=== PATIENT | female | born 1980 | race Caucasian/White ===

== ENCOUNTER 2019-05-19 19:10 | Emergency (ER) | payer OTHER ==
[~2019-05-19] VITALS: Ht 172.7 cm; Wt 109.8 kg
[2019-05-19 19:31] VITALS: Ht 172.7 cm; Wt 109.8 kg
[2019-05-19 22:13] VITALS: BP 151/74
== END 2019-05-19 22:13 | disposition home or self-care (01) ==
LOC: ED 19:10
DX: S43.014A Anterior dislocation of right humerus, initial encounter (principal); W01.0XXA Fall on same level from slipping, tripping and stumbling without subsequent striking against object, initial encounter; Y93.89 Activity, other specified; Y92.89 Other specified places as the place of occurrence of the external cause; Y99.8 Other external cause status
CPT/HCPCS: J1885; J2405; J3010; J3490; Q0092